=== PATIENT | male | born 1980 | race Hispanic/Latino ===

== ENCOUNTER 2016-09-07 08:06 | Emergency (ER) | payer SELFPAY ==
[2016-09-07] MEDS ORDERED: ASPIRIN 81 MG TAB.CHEW PO ONE (08:23)
[2016-09-07] MEDS ORDERED: NITROGLYCERIN 0.4 MG/TAB BTL SL ONE (08:26)
[2016-09-07] MEDS ORDERED: ASPIRIN 81 MG TAB.CHEW ONE (08:26)
[2016-09-07] MEDS: NITROGLYCERIN 0.4 MG/TAB BTL SL PRN ×2 (08:33→08:39)
--- NOTE | 2016-09-07 08:33 | ERNOTE ---
Chest Pain/Cardiac HPI Chief Complaint: Chest Pain Time Seen by Provider: 09/07/16 08:16 Source: patient, family Exam Limitations: no limitations Immunizations: IMMUNIZATION HX Immunizations Up to Date Yes: 2006 Allergies/Adverse Reactions: Allergies No Known Allergies Allergy (Unverified 09/07/16 08:23) Home Medications: HOME MEDICATIONS Multivitamin [One Daily Essential] 1 each PO DAILY 09/07/16 [Last Taken Unknown] Narrative: Patient was sitting at this computer at work when he started to have sudden left sided chest pressure (7/10). The pressure was radiating into his left arm and currently has improved to 2/10. When asked about stressors he states that he has had 'girl trouble' for about three weeks. This woman works for him and was going to come to work at 8. His mother who is here with him convinced him to come to the ER as the father had an NM at age 50. Date (Duration): 09/07/16 Time (Timing): 06:45 Timing: constant Severity/Quality: moderate, pressure Location: left chest Chest Pain Radiation: arms Activities at Onset: emotional stress Modifying Factors - Improves: Present: nothing Modifying Factors - Worsens: Present: nothing Nitro Today/Relief: no nitro taken today Aspirin Treatment Today: no aspirin today Associated Symptoms: Present: shortness of breath, nausea. Absent: headache, dizziness, cough, diaphoresis, fever/chills, vomiting Prior Chest Pain/Cardiac Workup: Denies: prior chest pain Prior Treatment: Denies: recently seen, currently on antibiotics Review of Systems - Review of Systems Constitutional: Absent: recent illness, fever Respiratory: Present: See HPI Cardiology: Present: See HPI Gastrointestinal/Abdominal: Present: See HPI. Absent: vomiting, diarrhea, abdominal pain - Patient's Past Medical History Patient History - Medical: No pertinent hx Patient History - Cardiac/Respiratory: Other Patient History - Cancer: No Hx of Cancer Patient History - Surgical Procedures: Other Patient History - Other: None - Social History Living Situations: home Psych History: No pertinent hx Smoking Status: Never smoker Alcohol Use: none Drug Use: none - Immunizations Immunizations Up to Date: Yes - 2006 Physical Exam - Physical Exam General Appearance: Present: wd/wn, alert, no apparent distress, anxious, obese Eye Exam: Normal inspection: bilateral Ears, Nose, Throat: Present: normal pharynx Respiratory: Present: no respiratory distress, normal breath sounds, no accessory muscle use, lungs clear, chest tenderness - mild parasternal, not the same pain Cardiovascular/Chest: Present: regular rate, rhythm, no murmur Gastrointestinal/Abdominal: Present: normal bowel sounds, nontender, nondistended, soft Extremity Exam: Present: no edema Neurological Exam: Present: alert, oriented, normal mood/affect Skin Exam: Present: normal color, warm/dry ED Progress - Results and Orders Patient's Lab Results:: I have reviewed the patient's lab results. - Vital Signs Patient's Vital Signs:: I have reviewed the patient's vital signs. Vital Signs: Vital Signs 09/07/16 09/07/16 08:16 08:24 Temperature 36.8 C Pulse Rate 78 71 Respiratory 12 Rate Blood Pressure 163/104 O2 Sat by Pulse 96 Oximetry - EKG EKG: NSR, nonspecific ST T wave changes EKG read: Interp. by me - X-Ray X-Ray #1 X-Ray: chest - no acute findings Interpretation: Reviewed by me - Progress/Reassessment Chief Complaint: Chest Pain Progress Note-Subjective: 09/07/16 09:28 chest pain resolved after 2nd nitro and has not returned currently pain free discussed test results and limits of test to completely rule out CAD, discussed need for follow up offered admission, patient comfortable going home Departure - Departure Clinical Impression: Chest pain Qualifiers: Chest pain type: precordial pain Qualified Code(s): R07.2 - Precordial pain Disposition: Home self-care Condition: Good Instructions: Chest Pain Observation Additional Instructions: call for follow up appointment either at the clinic here of the [facility] return to the ER at any time for recurrent chest pain Referrals: Desiree Antonio DO [Associate] -
[2016-09-07 08:39] LABS: Hematocrit 42.5 % (42.0-52.0); Hemoglobin 14.1 gm/dL (13.5-18.0); Mean Cell Volume 86.7 fl (78-100); Mean Corpuscular Hemoglobin 28.8 pg (27-31); Mean Corpuscular Hgb Conc 33.2 g/dl (32-36); Neutrophil # 7.2 K/mm3 (1.3-6.0); Platelet Count 366 K/mm3 (150-450); Red Cell Distribution Width 13.5 % (11.5-14.0); White Blood Count 10.7 K/mm3 (4.0-10.5)
--- OUTSIDE RECORDS SUMMARY | 2016-09-07 08:46 | XMS REPORT | Continuity of Care Document ---
:1980 Author Organization [facility] [place] [address] Care Team Providers Name Role Phone Unavailable Primary Care Provider Unavailable Source Comments This disclosure is being made pursuant to the [facility] program and maynot contain all information available regarding this patient.[facility] Active Allergies and Adverse Reactions Not on File Current Medications Be aware that medications may not be up to date as of this document. Alwaysverify current medications with the patient. Not on file Active Problems Not on file Social History Tobacco Use Types Packs/Day Years Used Date Never Smoker Plan of Care Health Maintenance Due Date Last Done Comments Tetanus/Pertussis (1 - Tdap) 1999 Retired-INFLUENZA VACCINE 03/19/2016 Results from Last 3 Months Not on file
--- OUTSIDE RECORDS SUMMARY | 2016-09-07 08:46 | XMS REPORT | Continuity of Care Document ---
:1980 Author Organization [facility] ([facility]) Address [address] [place] [address] Phone [phone] Care Team Providers Name Role Phone Unavailable Primary Care Provider Unavailable Source Comments This disclosure is being made pursuant to the Care Everywhere program, applicable federal and state laws, and may not contain all informaitonavailable regarding this patient.[facility] ([facility]) Active Allergies and Adverse Reactions Not on File Current Medications Not on file Active Problems Not on file Social History Tobacco Use Types Packs/Day Years Used Date Never Assessed Plan of Care Health Maintenance Due Date Last Done Comments Hepatitis B Vaccine (1 of 3 - Primary Series) 1980 Tdap Vaccine 1991 Lipid Disorder Screening 1998 MMR Vaccine 1998 Td Vaccine 1998 Varicella Vaccine (1 of 2 - Adult - No Evidence of 1998 Immunity) Influenza Vaccine: Seasonal (#1) 02/17/2016 Results from Last 3 Months Not on file
[2016-09-07 08:52] LABS: INR 1.14 INR (0.90-1.10); Prothrombin Time (Patient) 11.9 Seconds (9.4-11.4)
[2016-09-07 08:53] LABS: Partial Thrombolplastin Time 28.5 Seconds (24-32)
[2016-09-07 09:01] LABS: ALT 59 U/L (19-67); AST 23 U/L (0-48); Albumin * 3.7 gm/dl (3.4-5.0); Alkaline Phosphatase * 89 U/L (50-170); Anion Gap 14.5 mmol/L (6.8-13.8); BUN/Creatinine Ratio 17.6 (9.0-21.6); Bilirubin, Total 0.3 mg/dL (0.0-1.1); Blood Urea Nitrogen 15 mg/dL (6-23); Ca. Corrected For Albumin 8.7 mg/dL (8.4-10.2); Calcium * 8.8 mg/dL (7.9-10.9); Carbon Dioxide 27.8 mmol/L (24-32.6); Chloride 106 mmol/L (97-106); Glucose * 94 mg/dL (70-110); Potassium 3.3 mmol/L (3.4-4.6); Sodium 145 mmol/L (132-142); Total Protein 7.6 gm/dL (6.2-8.2)
[2016-09-07 09:04] LABS: Troponin I Less than 0.017 ng/ml (0.00-0.10)
[2016-09-07 09:07] VITALS: BP 118/74
== END 2016-09-07 09:45 | disposition home or self-care (01) ==
LOC: ER 08:06
DX: R07.2 Precordial pain (principal)